=== PATIENT | male | born 2000 | race Caucasian/White ===

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

== ENCOUNTER 2023-03-01 13:29 | Inpatient (IN) | payer BC, OTHER ==
[2023-03-01] MEDS ORDERED: cefTRIAXone (ROCEPHIN) 1 GM VIAL ONE (13:50)
[2023-03-01] MEDS ORDERED: Vancomycin 1 GM/200 ML (FROZEN) BAG ONE (13:50)
[2023-03-01 13:58] LABS: #Monocytes 0.2 thou/uL (0.11-0.59); #Neutrophils 2.4 thou/uL (1.40-6.50); %Basophils 0.3 % (0.0-1.0); %Lymphocytes 24.5 % (28.0-48.0); %Monocytes 6.8 % (0.0-4.0); %Neutrophils 68.1 % (31.0-61.0); Hemoglobin 14.2 g/dL (14.0-18.0); Mean Corpuscular HGB CONC 34.2 g/dL (32.0-36.0); Mean Corpuscular Hemoglobin 30.1 pg (25.0-35.0); Mean Corpuscular Volume 88.1 fl (78.0-98.0); Mean Platelet Volume 10.2 fL (7.4-10.4); Platelet Count 133 10x3/uL (130-400); RBC Distribution Width 11.9 % (11.5-14.5); Red Blood Cell (RBC) Count 4.71 mill/uL (4.00-5.20); White Blood Cell (WBC) Count 3.6 10x3/uL (4.8-10.8)
[2023-03-01 14:20] LABS: Bilirubin Negative (Negative); Blood, Urine 3+ (Negative); CAUTI Indications for Culture Spinal Cord Injury; Clarity Turbid (Clear); Glucose, Urine (Dipstick) Normal (Negative); Ketone, Urine Greater than 150 mg/dL (Negative); Leukocyte 500 Leu/uL (Negative); Nitrite Negative (Negative); Protein, Urine (Dipstick) 50 mg/dL (Neg-Trace); Specific Gravity, Urine 1.019 (1.002-1.036); Squamous Epithelial 0-3 HPF (0-3); Urobilinogen Normal mg/dL (Less than 2)
[2023-03-01 14:22] LABS: INR-International Normal Ratio 1.1; Prothrombin Time 15.1 sec (12.0-14.7)
[2023-03-01 14:27] LABS: ALT (SGPT) 14 U/L (8-55); AST (SGOT) 17 U/L (5-34); Albumin 3.8 g/dL (3.5-5.0); Alkaline Phosphatase 101 U/L (50-130); Anion Gap 16 mmol/L (10-20); BUN (Urea Nitrogen) 9 mg/dL (8.9-20.6); Bacteria/HPF 1+ HPF (None Seen); Bilirubin, Total 0.6 mg/dL (0.2-1.2); Calc. Creatinine Clearance 0 mL/min (70-130); Carbon Dioxide 22 mmol/L (22-29); Chloride 99 mmol/L (98-107); Estimated GFR 130; Globulin 3.2 g/dL (2.4-3.5); Glucose 151 mg/dL (70-105); Potassium 3.2 mmol/L (3.5-5.1); Sodium 134 mmol/L (136-145)
[2023-03-01 14:28] LABS: Urine Culture Reflex Yes Yes
[2023-03-01] MEDS ORDERED: HYDROcodone/Acetaminophen 5/325 mg Tablet PO PRN (14:33)
[2023-03-01 14:39] LABS: PTT 39.8 sec (22.9-36.1)
[2023-03-01] MEDS ORDERED: diphenhydrAMINE 50 MG/ML VIAL ONE (15:05)
[2023-03-01] MEDS ORDERED: Sodium Chloride 0.9% 1,000 ML IV SCH (16:15)
[2023-03-01 17:28] VITALS: BMI 14.2
[2023-03-01] MEDS: Famotidine 20 MG TAB PO SCH (20:58)
[2023-03-01] MEDS: Baclofen 10 MG TAB PO SCH (20:58)
[2023-03-01] MEDS: Acetaminophen 325 MG TAB PO PRN (20:59)
[2023-03-02] MEDS: Acetaminophen 325 MG TAB PO PRN ×2 (06:02→13:56)
[2023-03-02 06:45] LABS: #Monocytes 0.4 thou/uL (0.11-0.59); #Neutrophils 1.6 thou/uL (1.40-6.50); %Basophils 0.3 % (0.0-1.0); %Eosinophils 0.6 % (0.0-10.0); %Lymphocytes 38.3 % (28.0-48.0); %Monocytes 12.6 % (0.0-4.0); %Neutrophils 47.9 % (31.0-61.0); Mean Corpuscular HGB CONC 33.4 g/dL (32.0-36.0); Mean Corpuscular Hemoglobin 30.6 pg (25.0-35.0); Mean Platelet Volume 10.3 fL (7.4-10.4); Platelet Count 133 10x3/uL (130-400); RBC Distribution Width 12.2 % (11.5-14.5); Red Blood Cell (RBC) Count 4.25 mill/uL (4.00-5.20); White Blood Cell (WBC) Count 3.3 10x3/uL (4.8-10.8)
[2023-03-02 06:48] LABS: Mean Corpuscular Volume 91.5 fl (78.0-98.0)
[2023-03-02 06:58] LABS: Anion Gap 12 mmol/L (10-20); BUN (Urea Nitrogen) 4 mg/dL (8.9-20.6); Calc. Creatinine Clearance 117 mL/min (70-130); Calcium 8.4 mg/dL (7.8-10.44); Carbon Dioxide 25 mmol/L (22-29); Chloride 108 mmol/L (98-107); Estimated GFR 136; Glucose 82 mg/dL (70-105); Potassium 3.5 mmol/L (3.5-5.1); Sodium 141 mmol/L (136-145)
[2023-03-02] MEDS ORDERED: cefTRIAXone\\ROCEPHIN 1 GM in Sodium Chloride 0.9% 100 ML IVPB SCH (08:00)
[2023-03-02] MEDS: Baclofen 10 MG TAB PO SCH ×2 (08:44→20:45)
[2023-03-02] MEDS: Sertraline 25 MG TAB PO SCH (08:44)
[2023-03-02] MEDS: Famotidine 20 MG TAB PO SCH ×2 (08:45→20:45)
[2023-03-02] MEDS: Cholecalciferol 1,000 UNITS (25 MCG) TAB PO SCH (08:45)
[2023-03-02] MEDS: Mesalamine DR 400 mg Capsule PO SCH (08:48)
[2023-03-02] MEDS: Cefepime 2 GM in Sodium Chloride 0.9% 100 ML IVPB SCH ×2 (13:56→20:48)
[2023-03-02] MEDS ORDERED: Saccharomyces boulardii 250 MG CAP PO SCH (21:30)
[2023-03-03] MEDS: Cefepime 2 GM in Sodium Chloride 0.9% 100 ML IVPB SCH ×2 (05:05→14:11)
[2023-03-03] MEDS: D MANNOSE 500 MG PO SCH ×3 (07:37→07:39)
[2023-03-03 07:56] LABS: #Eosinphils 0.1 thou/uL (0.0-0.7); #Monocytes 0.3 thou/uL (0.11-0.59); #Neutrophils 1.6 thou/uL (1.40-6.50); %Basophils 0.6 % (0.0-1.0); %Eosinophils 2.7 % (0.0-10.0); %Lymphocytes 37.4 % (28.0-48.0); %Monocytes 9.4 % (0.0-4.0); %Neutrophils 49.6 % (31.0-61.0); Hemoglobin 13.5 g/dL (14.0-18.0); Mean Corpuscular Hemoglobin 30.6 pg (25.0-35.0); Mean Platelet Volume 9.7 fL (7.4-10.4); Platelet Count 149 10x3/uL (130-400); RBC Distribution Width 12.1 % (11.5-14.5); Red Blood Cell (RBC) Count 4.41 mill/uL (4.00-5.20); White Blood Cell (WBC) Count 3.3 10x3/uL (4.8-10.8)
[2023-03-03] MEDS: Mesalamine DR 400 mg Capsule PO SCH (08:18)
[2023-03-03 08:19] LABS: Anion Gap 12 mmol/L (10-20); BUN (Urea Nitrogen) 5 mg/dL (8.9-20.6); Calc. Creatinine Clearance 124 mL/min (70-130); Calcium 8.7 mg/dL (7.8-10.44); Carbon Dioxide 27 mmol/L (22-29); Chloride 105 mmol/L (98-107); Estimated GFR 139; Glucose 83 mg/dL (70-105); Potassium 3.8 mmol/L (3.5-5.1); Sodium 140 mmol/L (136-145)
[2023-03-03] MEDS: Sertraline 25 MG TAB PO SCH (08:20)
[2023-03-03] MEDS: Sodium Chloride 0.9% 1,000 ML IV SCH ×2 (08:20→20:47)
[2023-03-03] MEDS: Cholecalciferol 1,000 UNITS (25 MCG) TAB PO SCH (08:20)
[2023-03-03] MEDS: Famotidine 20 MG TAB PO SCH ×2 (08:20→20:46)
[2023-03-03] MEDS: Baclofen 10 MG TAB PO SCH ×2 (08:20→20:46)
[2023-03-03] MEDS: Saccharomyces boulardii 250 MG CAP PO SCH (08:21)
[2023-03-03] MEDS: cefTRIAXone\\ROCEPHIN 2 GM in Sodium Chloride 0.9% 100 ML IVPB SCH (14:46)
[2023-03-03] MEDS ORDERED: cefTRIAXone\\ROCEPHIN 2 GM in Sodium Chloride 0.9% 100 ML IVPB SCH (15:00)
[2023-03-04] MEDS: Cholecalciferol 1,000 UNITS (25 MCG) TAB PO SCH (09:18)
[2023-03-04] MEDS: Baclofen 10 MG TAB PO SCH (09:18)
[2023-03-04] MEDS: Mesalamine DR 400 mg Capsule PO SCH (09:19)
[2023-03-04] MEDS: Saccharomyces boulardii 250 MG CAP PO SCH (09:19)
[2023-03-04] MEDS: Famotidine 20 MG TAB PO SCH (09:19)
[2023-03-04] MEDS: Sertraline 25 MG TAB PO SCH (09:20)
[2023-03-04] MEDS: cefTRIAXone\\ROCEPHIN 2 GM in Sodium Chloride 0.9% 100 ML IVPB SCH (15:27)
[2023-03-04] MEDS: Sodium Chloride 0.9% 1,000 ML IV SCH (16:01)
[2023-03-04 16:14] VITALS: BP 127/92; TEMP 98.3
== END 2023-03-04 17:53 | disposition home or self-care (01) | DRG 871 ==
LOC: ERS 13:29 → T4-A 16:48 → OBSVTOIN 03-02 14:57
PROVIDERS: ADMIT Internal Medicine; ATTEND Internal Medicine
PROC: 3E04329 Introduction of Other Anti-infective into Central Vein, Percutaneous Approach (ICD-10-PCS; 2023-03-01)
PROC: 5A09357 Assistance with Respiratory Ventilation, Less than 24 Consecutive Hours, Continuous Positive Airway Pressure (ICD-10-PCS; 2023-03-02)
PROC: 02HV33Z Insertion of Infusion Device into Superior Vena Cava, Percutaneous Approach (ICD-10-PCS; principal; 2023-03-04)
PROC: B548ZZA Ultrasonography of Superior Vena Cava, Guidance (ICD-10-PCS; 2023-03-04)
DX: A41.4 Sepsis due to anaerobes (principal); G82.50 Quadriplegia, unspecified; N39.0 Urinary tract infection, site not specified; E87.1 Hypo-osmolality and hyponatremia; K51.90 Ulcerative colitis, unspecified, without complications; N20.2 Calculus of kidney with calculus of ureter; S11.93XD Puncture wound without foreign body of unspecified part of neck, subsequent encounter; R32 Unspecified urinary incontinence; E87.6 Hypokalemia; Z98.890 Other specified postprocedural states; Z93.0 Tracheostomy status; Z88.2 Allergy status to sulfonamides; Z79.899 Other long term (current) drug therapy
CPT/HCPCS: 36415; 36569; 71045; 74176; 76770; 80048; 80053; 81001; 83605; 85025; 85610; 85730; 87040; 87086; 96361; 96365; 96372; 96375; 96376; C1751; G0378; J0692; J0696; J1200; J1650; J3370-JW; J3490; J7050

== ENCOUNTER → 2023-03-10 | Day surgery (SDC) | payer BC, MEDICAID ==
[2023-03-10 11:44] LABS: #Eosinphils 0.1 thou/uL (0.0-0.7); #Monocytes 0.3 thou/uL (0.11-0.59); #Neutrophils 1.3 thou/uL (1.40-6.50); %Basophils 0.8 % (0.0-1.0); %Eosinophils 2.3 % (0.0-10.0); %Lymphocytes 49.2 % (28.0-48.0); %Monocytes 9.6 % (0.0-4.0); %Neutrophils 37.3 % (31.0-61.0); Hematocrit 41.4 % (42.0-52.0); Hemoglobin 13.6 g/dL (14.0-18.0); Mean Corpuscular HGB CONC 32.9 g/dL (32.0-36.0); Mean Corpuscular Hemoglobin 29.8 pg (25.0-35.0); Mean Corpuscular Volume 90.6 fl (78.0-98.0); Mean Platelet Volume 9.6 fL (7.4-10.4); Platelet Count 269 10x3/uL (130-400); RBC Distribution Width 12.1 % (11.5-14.5); Red Blood Cell (RBC) Count 4.57 mill/uL (4.00-5.20); White Blood Cell (WBC) Count 3.5 10x3/uL (4.8-10.8)
[2023-03-10 12:13] LABS: ALT (SGPT) 28 U/L (8-55); AST (SGOT) 22 U/L (5-34); Alkaline Phosphatase 111 U/L (50-130); Anion Gap 7 mmol/L (10-20); BUN (Urea Nitrogen) 9 mg/dL (8.9-20.6); Bilirubin, Total 0.3 mg/dL (0.2-1.2); CRP (Inflammatory) 0.64 mg/dL (= or < 0.5); Calc. Creatinine Clearance 0 mL/min (70-130); Calcium 9.4 mg/dL (7.8-10.44); Carbon Dioxide 29 mmol/L (22-29); Chloride 103 mmol/L (98-107); Estimated GFR 144; Globulin 3.4 g/dL (2.4-3.5); Glucose 73 mg/dL (70-105); Protein, Total 7.4 g/dL (6.0-8.3); Sodium 135 mmol/L (136-145)
== END ==
LOC: ONC/OP 10:38
PROVIDERS: ATTEND Student in an Organized Health Care Education/Training Program
DX: R78.81 Bacteremia (principal); Z88.2 Allergy status to sulfonamides; Z88.1 Allergy status to other antibiotic agents
CPT/HCPCS: 36592; 80053; 85025; 86140; 99211; G0463

== ENCOUNTER 2023-03-16 12:59 | Day surgery (SDC) | payer BC, MEDICAID | END 2023-03-16 13:23 | disposition home or self-care (01) | LOC: ONC/OP 12:59 | PROVIDERS: ATTEND Student in an Organized Health Care Education/Training Program | DX: R78.81 Bacteremia (principal); Z88.2 Allergy status to sulfonamides; Z88.1 Allergy status to other antibiotic agents | CPT/HCPCS: 99211; G0463 ==

== ENCOUNTER 2023-04-09 07:28 | Inpatient (IN) | payer BC, OTHER ==
[2023-04-09] MEDS ORDERED: Acetaminophen 325 MG TAB PO PRN (08:18)
[2023-04-09] MEDS ORDERED: Ondansetron ODT 4 MG TAB PO PRN ×2 (08:18→17:15)
[2023-04-09] MEDS ORDERED: Ondansetron PF 4 MG/2 ML Vial IVP PRN (08:18)
[2023-04-09 10:16] VITALS: BMI 17.2
[2023-04-09] MEDS ORDERED: Meropenem 1 GM in Sodium Chloride 0.9% 100 ML IVPB SCH ×2 (12:00→20:00)
[2023-04-09] MEDS ORDERED: Melatonin 3 MG TAB PO PRN (17:16)
[2023-04-09] MEDS ORDERED: DOCUSATE SODIUM 283 MG/5 ML PR PRN (17:58)
[2023-04-09] MEDS: Baclofen 10 MG TAB PO SCH (20:13)
[2023-04-09] MEDS ORDERED: Baclofen 10 MG TAB PO SCH (21:00)
[2023-04-09] MEDS ORDERED: AZO D MANNOSE PO SCH (21:00)
[2023-04-09] MEDS: cefTRIAXone\\ROCEPHIN 2 GM in Sodium Chloride 0.9% 100 ML IVPB SCH (21:28)
[2023-04-10 06:58] LABS: #Eosinphils 0.1 thou/uL (0.0-0.7); #Monocytes 0.5 thou/uL (0.11-0.59); #Neutrophils 2.2 thou/uL (1.40-6.50); %Basophils 0.5 % (0.0-1.0); %Eosinophils 1.7 % (0.0-10.0); %Lymphocytes 32.9 % (28.0-48.0); %Monocytes 11.8 % (0.0-4.0); %Neutrophils 53.1 % (31.0-61.0); Hematocrit 38.2 % (42.0-52.0); Hemoglobin 12.9 g/dL (14.0-18.0); Mean Corpuscular HGB CONC 33.8 g/dL (32.0-36.0); Mean Corpuscular Hemoglobin 29.7 pg (25.0-35.0); Mean Platelet Volume 9.9 fL (7.4-10.4); Platelet Count 206 10x3/uL (130-400); RBC Distribution Width 12.2 % (11.5-14.5); Red Blood Cell (RBC) Count 4.34 mill/uL (4.00-5.20); White Blood Cell (WBC) Count 4.1 10x3/uL (4.8-10.8)
[2023-04-10 07:24] LABS: Anion Gap 11 mmol/L (10-20); BUN (Urea Nitrogen) 5 mg/dL (8.9-20.6); Calc. Creatinine Clearance 144 mL/min (70-130); Calcium 8.9 mg/dL (7.8-10.44); Carbon Dioxide 24 mmol/L (22-29); Chloride 103 mmol/L (98-107); Estimated GFR 145; Glucose 88 mg/dL (70-105); Potassium 3.3 mmol/L (3.5-5.1); Sodium 135 mmol/L (136-145)
[2023-04-10] MEDS: Sertraline 25 MG TAB PO SCH (08:43)
[2023-04-10] MEDS: Saccharomyces boulardii 250 MG CAP PO SCH (08:43)
[2023-04-10] MEDS: Cholecalciferol 1,000 UNITS (25 MCG) TAB PO SCH (08:43)
[2023-04-10] MEDS: Baclofen 10 MG TAB PO SCH ×2 (08:43→21:28)
[2023-04-10] MEDS ORDERED: Mesalamine [Lialda] 1.2 GM Tablet.Dr PO SCH (09:00)
[2023-04-10] MEDS ORDERED: Melatonin 3 MG TAB PO PRN (11:19)
[2023-04-10] MEDS ORDERED: diphenhydrAMINE 12.5 MG/5 ML UDCUP PO PRN (21:26)
[2023-04-10] MEDS: cefTRIAXone\\ROCEPHIN 2 GM in Sodium Chloride 0.9% 100 ML IVPB SCH (21:28)
[2023-04-11 07:54] LABS: #Eosinphils 0.1 thou/uL (0.0-0.7); #Monocytes 0.5 thou/uL (0.11-0.59); %Basophils 0.6 % (0.0-1.0); %Eosinophils 1.4 % (0.0-10.0); %Lymphocytes 29.5 % (28.0-48.0); %Monocytes 9.8 % (0.0-4.0); %Neutrophils 58.5 % (31.0-61.0); Hematocrit 39.7 % (42.0-52.0); Hemoglobin 13.3 g/dL (14.0-18.0); Mean Corpuscular HGB CONC 33.5 g/dL (32.0-36.0); Mean Corpuscular Hemoglobin 29.6 pg (25.0-35.0); Mean Corpuscular Volume 88.2 fl (78.0-98.0); Mean Platelet Volume 10.1 fL (7.4-10.4); Platelet Count 226 10x3/uL (130-400); RBC Distribution Width 12.2 % (11.5-14.5); White Blood Cell (WBC) Count 5.1 10x3/uL (4.8-10.8)
[2023-04-11 08:10] LABS: Anion Gap 13 mmol/L (10-20); BUN (Urea Nitrogen) 7 mg/dL (8.9-20.6); Calc. Creatinine Clearance 152 mL/min (70-130); Calcium 9.1 mg/dL (7.8-10.44); Carbon Dioxide 25 mmol/L (22-29); Chloride 104 mmol/L (98-107); Estimated GFR 147; Glucose 92 mg/dL (70-105); Potassium 3.5 mmol/L (3.5-5.1); Sodium 138 mmol/L (136-145)
[2023-04-11] MEDS ORDERED: Meropenem 1 GM in Sodium Chloride 0.9% 100 ML IVPB SCH (08:30)
[2023-04-11] MEDS: Sertraline 25 MG TAB PO SCH (08:58)
[2023-04-11] MEDS: Saccharomyces boulardii 250 MG CAP PO SCH (08:58)
[2023-04-11] MEDS: Baclofen 10 MG TAB PO SCH ×2 (08:58→21:52)
[2023-04-11] MEDS: Cholecalciferol 1,000 UNITS (25 MCG) TAB PO SCH (08:58)
[2023-04-11] MEDS: Meropenem 1 GM in Sodium Chloride 0.9% 100 ML IVPB SCH (16:32)
[2023-04-11] MEDS ORDERED: diphenhydrAMINE 12.5 MG/5 ML UDCUP PO PRN ×2 (21:16→22:16)
[2023-04-12] MEDS: Meropenem 1 GM in Sodium Chloride 0.9% 100 ML IVPB SCH ×3 (01:16→17:08)
[2023-04-12 07:09] LABS: #Eosinphils 0.1 thou/uL (0.0-0.7); #Monocytes 0.4 thou/uL (0.11-0.59); #Neutrophils 1.3 thou/uL (1.40-6.50); %Basophils 0.9 % (0.0-1.0); %Eosinophils 3.3 % (0.0-10.0); %Lymphocytes 45.3 % (28.0-48.0); %Monocytes 10.5 % (0.0-4.0); %Neutrophils 39.7 % (31.0-61.0); Hemoglobin 12.9 g/dL (14.0-18.0); Mean Corpuscular HGB CONC 33.1 g/dL (32.0-36.0); Mean Corpuscular Hemoglobin 29.8 pg (25.0-35.0); Mean Corpuscular Volume 90.1 fl (78.0-98.0); Mean Platelet Volume 9.6 fL (7.4-10.4); Platelet Count 226 10x3/uL (130-400); RBC Distribution Width 12.2 % (11.5-14.5); Red Blood Cell (RBC) Count 4.33 mill/uL (4.00-5.20); White Blood Cell (WBC) Count 3.3 10x3/uL (4.8-10.8)
[2023-04-12 07:35] LABS: Anion Gap 11 mmol/L (10-20); BUN (Urea Nitrogen) 9 mg/dL (8.9-20.6); Calc. Creatinine Clearance 139 mL/min (70-130); Calcium 8.9 mg/dL (7.8-10.44); Carbon Dioxide 24 mmol/L (22-29); Chloride 106 mmol/L (98-107); Estimated GFR 143; Glucose 92 mg/dL (70-105); Potassium 3.3 mmol/L (3.5-5.1); Sodium 138 mmol/L (136-145)
[2023-04-12] MEDS: Saccharomyces boulardii 250 MG CAP PO SCH (09:50)
[2023-04-12] MEDS: Sertraline 25 MG TAB PO SCH (09:50)
[2023-04-12] MEDS: Cholecalciferol 1,000 UNITS (25 MCG) TAB PO SCH (09:50)
[2023-04-12] MEDS: Baclofen 10 MG TAB PO SCH ×2 (09:50→21:14)
[2023-04-13] MEDS: Meropenem 1 GM in Sodium Chloride 0.9% 100 ML IVPB SCH ×3 (01:54→16:34)
[2023-04-13 06:34] LABS: #Eosinphils 0.1 thou/uL (0.0-0.7); #Monocytes 0.4 thou/uL (0.11-0.59); %Basophils 0.6 % (0.0-1.0); %Eosinophils 3.4 % (0.0-10.0); %Lymphocytes 51.7 % (28.0-48.0); %Monocytes 12.6 % (0.0-4.0); %Neutrophils 31.4 % (31.0-61.0); Hematocrit 37.6 % (42.0-52.0); Hemoglobin 12.6 g/dL (14.0-18.0); Mean Corpuscular HGB CONC 33.5 g/dL (32.0-36.0); Mean Corpuscular Hemoglobin 30.3 pg (25.0-35.0); Mean Corpuscular Volume 90.4 fl (78.0-98.0); Mean Platelet Volume 9.5 fL (7.4-10.4); Platelet Count 227 10x3/uL (130-400); RBC Distribution Width 12.2 % (11.5-14.5); Red Blood Cell (RBC) Count 4.16 mill/uL (4.00-5.20); White Blood Cell (WBC) Count 3.3 10x3/uL (4.8-10.8)
[2023-04-13 07:03] LABS: Anion Gap 12 mmol/L (10-20); BUN (Urea Nitrogen) 10 mg/dL (8.9-20.6); Calc. Creatinine Clearance 152 mL/min (70-130); Calcium 8.9 mg/dL (7.8-10.44); Carbon Dioxide 24 mmol/L (22-29); Chloride 105 mmol/L (98-107); Estimated GFR 147; Glucose 86 mg/dL (70-105); Potassium 3.7 mmol/L (3.5-5.1); Sodium 137 mmol/L (136-145)
[2023-04-13] MEDS: Saccharomyces boulardii 250 MG CAP PO SCH (08:38)
[2023-04-13] MEDS: Baclofen 10 MG TAB PO SCH ×2 (08:38→20:33)
[2023-04-13] MEDS: Cholecalciferol 1,000 UNITS (25 MCG) TAB PO SCH (08:38)
[2023-04-13] MEDS: Sertraline 25 MG TAB PO SCH (08:38)
[2023-04-13] MEDS ORDERED: Loperamide HCl 2 MG CAP PO PRN (16:20)
[2023-04-13] MEDS ORDERED: ALPRAZolam 0.5 MG TAB PO SCH (16:30)
[2023-04-14] MEDS: Meropenem 1 GM in Sodium Chloride 0.9% 100 ML IVPB SCH ×3 (00:05→17:51)
[2023-04-14 07:00] LABS: Hematocrit 38.2 % (42.0-52.0); Hemoglobin 12.5 g/dL (14.0-18.0); Manual Diff?? YES; Mean Corpuscular HGB CONC 32.7 g/dL (32.0-36.0); Mean Corpuscular Hemoglobin 29.6 pg (25.0-35.0); Mean Corpuscular Volume 90.5 fl (78.0-98.0); Mean Platelet Volume 9.4 fL (7.4-10.4); Platelet Count 239 10x3/uL (130-400); RBC Distribution Width 12.3 % (11.5-14.5); Red Blood Cell (RBC) Count 4.22 mill/uL (4.00-5.20); White Blood Cell (WBC) Count 3.7 10x3/uL (4.8-10.8)
[2023-04-14 07:20] LABS: Delete Auto Diff?? YES
[2023-04-14 07:27] LABS: Anion Gap 11 mmol/L (10-20); BUN (Urea Nitrogen) 9 mg/dL (8.9-20.6); Calc. Creatinine Clearance 142 mL/min (70-130); Carbon Dioxide 26 mmol/L (22-29); Chloride 106 mmol/L (98-107); Estimated GFR 144; Glucose 86 mg/dL (70-105); Potassium 3.6 mmol/L (3.5-5.1); Sodium 139 mmol/L (136-145)
[2023-04-14 07:40] LABS: Band 2 % (5-11); CellaVision Operator ID LAB.GE; Eosinophils 8 % (0-10); Lymphocytes 53 % (28-48); Monocytes 5 % (0-4); Myelocyte 2 % (0-0); Neutrophil 26 % (31-61); Platelet Adequacy Comment Platelets Normal; Polychromasia SLIGHT = 2-3 cells HPF (0-2); Reactive Lymphocytes 3 % (0-10); Total Cell Count 100
[2023-04-14] MEDS: Sertraline 25 MG TAB PO SCH (09:24)
[2023-04-14] MEDS: Saccharomyces boulardii 250 MG CAP PO SCH (09:24)
[2023-04-14] MEDS: Baclofen 10 MG TAB PO SCH ×2 (09:24→20:34)
[2023-04-14] MEDS: Cholecalciferol 1,000 UNITS (25 MCG) TAB PO SCH (09:24)
[2023-04-14] MEDS ORDERED: Lorazepam 0.5 MG TAB PO SCH (09:24)
[2023-04-14] MEDS ORDERED: Lorazepam 0.5 MG TAB PO PRN (09:25)
[2023-04-15] MEDS ORDERED: ERTAPENEM 1 GM IV SCH (06:00)
[2023-04-15] MEDS ORDERED: Ertapenem 1 GM in Sodium Chloride 0.9% 100 ML IVPB SCH (06:00)
[2023-04-15 07:40] VITALS: BP 130/92; TEMP 98
[2023-04-15] MEDS: Baclofen 10 MG TAB PO SCH (09:34)
[2023-04-15] MEDS: Cholecalciferol 1,000 UNITS (25 MCG) TAB PO SCH (09:34)
[2023-04-15] MEDS: Sertraline 25 MG TAB PO SCH (09:35)
[2023-04-15] MEDS: Saccharomyces boulardii 250 MG CAP PO SCH (09:35)
== END 2023-04-15 12:50 | disposition home health service (06) | DRG 690 ==
LOC: T4-B 07:28
PROVIDERS: ADMIT Student in an Organized Health Care Education/Training Program; ATTEND Family Medicine
PROC: 02HV33Z Insertion of Infusion Device into Superior Vena Cava, Percutaneous Approach (ICD-10-PCS; principal; 2023-04-14)
PROC: B548ZZA Ultrasonography of Superior Vena Cava, Guidance (ICD-10-PCS; 2023-04-14)
PROC: B5181ZA Fluoroscopy of Superior Vena Cava using Low Osmolar Contrast, Guidance (ICD-10-PCS; 2023-04-14)
DX: N12 Tubulo-interstitial nephritis, not specified as acute or chronic (principal); G82.20 Paraplegia, unspecified; N31.9 Neuromuscular dysfunction of bladder, unspecified; N20.0 Calculus of kidney; B96.1 Klebsiella pneumoniae [K. pneumoniae] as the cause of diseases classified elsewhere; Z88.2 Allergy status to sulfonamides; Z88.1 Allergy status to other antibiotic agents; Z79.899 Other long term (current) drug therapy; Z93.1 Gastrostomy status
CPT/HCPCS: 36415; 36569; 80048; 85025; J0696; J1335; J2185; J3490; Q0163

== ENCOUNTER 2023-07-22 00:49 | Inpatient (IN) | payer BC, OTHER ==
[2023-07-22 01:58] LABS: #Monocytes 0.6 thou/uL (0.11-0.59); %Basophils 0.3 % (0.0-1.0); %Eosinophils 0.4 % (0.0-10.0); %Lymphocytes 15.4 % (21.0-51.0); %Monocytes 9.3 % (0.0-10.0); %Neutrophils 74.2 % (42.0-75.0); Hematocrit 38.7 % (42.0-52.0); Mean Corpuscular HGB CONC 33.6 g/dL (32.0-36.0); Mean Corpuscular Hemoglobin 29.5 pg (27.0-31.0); Mean Corpuscular Volume 87.8 fl (78.0-98.0); Mean Platelet Volume 9.7 fL (7.4-10.4); Platelet Count 204 10x3/uL (130-400); RBC Distribution Width 12.4 % (11.5-14.5); Red Blood Cell (RBC) Count 4.41 mill/uL (4.70-6.10); White Blood Cell (WBC) Count 6.8 10x3/uL (4.8-10.8)
[2023-07-22 02:20] LABS: CRP (Inflammatory) 12.09 mg/dL (= or < 0.5); Lipase 5 U/L (8-78); Magnesium 1.8 mg/dL (1.6-2.6)
[2023-07-22 02:21] LABS: ALT (SGPT) 12 U/L (8-55); AST (SGOT) 13 U/L (5-34); Albumin 3.9 g/dL (3.5-5.0); Alkaline Phosphatase 109 U/L (40-110); Anion Gap 14 mmol/L (10-20); BUN (Urea Nitrogen) 11 mg/dL (8.9-20.6); Bilirubin, Total 1.1 mg/dL (0.2-1.2); Calc. Creatinine Clearance 0 mL/min (70-130); Calcium 9.3 mg/dL (7.8-10.44); Carbon Dioxide 21 mmol/L (22-29); Chloride 102 mmol/L (98-107); Estimated GFR 138; Glucose 95 mg/dL (70-105); Potassium 3.7 mmol/L (3.5-5.1); Protein, Total 7.9 g/dL (6.0-8.3); Sodium 133 mmol/L (136-145)
[2023-07-22 02:52] LABS: Bacteria/HPF 3+ HPF (None Seen); Bilirubin Negative (Negative); Blood, Urine 3+ (Negative); CAUTI Indications for Culture Pelvic or flank pain; Clarity Extra Turbid (Clear); Glucose, Urine (Dipstick) Normal (Negative); Ketone, Urine 10 mg/dL (Negative); Leukocyte 500 Leu/uL (Negative); Nitrite 2+ (Negative); Protein, Urine (Dipstick) 200 mg/dL (Neg-Trace); RBC/HPF Greater than 50 HPF (0-3); Specific Gravity, Urine 1.029 (1.002-1.036); Squamous Epithelial None Seen HPF (0-3); Urobilinogen Normal mg/dL (Less than 2); WBC/HPF Greater than 50 HPF (0-3)
[2023-07-22 02:57] LABS: Urine Culture Reflex Yes Yes
[2023-07-22] MEDS ORDERED: Acetaminophen 500 MG TAB ONE (03:08)
[2023-07-22] MEDS ORDERED: Sodium Chloride 0.9% 100 ML ONE ×2 (03:35→08:00)
[2023-07-22] MEDS ORDERED: Piperacillin/Tazobactam 3.375 GM VIAL ONE ×2 (03:35→08:00)
[2023-07-22] MEDS ORDERED: Ketorolac Tromethamine 30 MG/ML VIAL ONE (04:00)
[2023-07-22] MEDS ORDERED: Senokot S 8.6-50 MG TAB PO PRN (04:55)
[2023-07-22 05:29] VITALS: BMI 14.8
[2023-07-22] MEDS ORDERED: Ondansetron PF 4 MG/2 ML Vial IVP PRN (07:42)
[2023-07-22] MEDS ORDERED: Ondansetron ODT 4 MG TAB PO PRN (07:42)
[2023-07-22] MEDS: Lactated Ringer's 1,000 ML IV SCH ×3 (07:47→21:30)
[2023-07-22] MEDS ORDERED: Piperacillin/Tazobactam 3.375 GM in Sodium Chloride 0.9% 100 ML IVPB SCH ×2 (08:00→09:00)
[2023-07-22] MEDS ORDERED: Iopamidol-370 76% 500 ML MDV (1 ML CHARGE) ONE (09:26)
[2023-07-22] MEDS ORDERED: Polyethylene Glycol 3350 17 GM Packet PO PRN (10:06)
[2023-07-22] MEDS ORDERED: Bisacodyl 10 MG SUPP PR PRN (10:06)
[2023-07-22] MEDS ORDERED: Bisacodyl 5 MG TAB PO PRN (10:06)
[2023-07-22] MEDS: Acetaminophen 500 MG TAB PO PRN ×2 (11:12→19:28)
[2023-07-22] MEDS: Baclofen 10 MG TAB PO PRN (11:18)
[2023-07-22] MEDS: Sertraline 25 MG TAB PO SCH (11:18)
[2023-07-22] MEDS ORDERED: Meropenem 1 GM in Sodium Chloride 0.9% 100 ML IVPB SCH (14:00)
[2023-07-22] MEDS ORDERED: hydrOXYzine 25 MG TAB PO SCH (19:45)
[2023-07-22] MEDS: Meropenem 1 GM in Sodium Chloride 0.9% 100 ML IVPB SCH (22:30)
[2023-07-23] MEDS: Acetaminophen 500 MG TAB PO PRN (02:51)
[2023-07-23] MEDS: Baclofen 10 MG TAB PO PRN ×2 (03:08→21:59)
[2023-07-23 04:52] LABS: #Monocytes 0.6 thou/uL (0.11-0.59); #Neutrophils 4.8 thou/uL (1.40-6.50); %Basophils 0.3 % (0.0-1.0); %Eosinophils 0.2 % (0.0-10.0); %Lymphocytes 10.7 % (21.0-51.0); %Monocytes 9.5 % (0.0-10.0); Hematocrit 34.5 % (42.0-52.0); Hemoglobin 11.5 g/dL (14.0-18.0); Mean Corpuscular HGB CONC 33.3 g/dL (32.0-36.0); Mean Corpuscular Hemoglobin 29.4 pg (27.0-31.0); Mean Corpuscular Volume 88.2 fl (78.0-98.0); Mean Platelet Volume 9.6 fL (7.4-10.4); Platelet Count 174 10x3/uL (130-400); RBC Distribution Width 12.3 % (11.5-14.5); Red Blood Cell (RBC) Count 3.91 mill/uL (4.70-6.10); White Blood Cell (WBC) Count 6.1 10x3/uL (4.8-10.8)
[2023-07-23 05:23] LABS: ALT (SGPT) 10 U/L (8-55); AST (SGOT) 16 U/L (5-34); Alkaline Phosphatase 77 U/L (40-110); Anion Gap 13 mmol/L (10-20); BUN (Urea Nitrogen) 8 mg/dL (8.9-20.6); Bilirubin, Total 0.6 mg/dL (0.2-1.2); Calc. Creatinine Clearance 156 mL/min (70-130); Calcium 8.3 mg/dL (7.8-10.44); Carbon Dioxide 20 mmol/L (22-29); Chloride 103 mmol/L (98-107); Estimated GFR 146; Globulin 3.2 g/dL (2.4-3.5); Glucose 114 mg/dL (70-105); Potassium 3.5 mmol/L (3.5-5.1); Protein, Total 6.2 g/dL (6.0-8.3); Sodium 132 mmol/L (136-145)
[2023-07-23] MEDS: Meropenem 1 GM in Sodium Chloride 0.9% 100 ML IVPB SCH ×3 (05:40→21:58)
[2023-07-23] MEDS ORDERED: Lactated Ringer's 1,000 ML IV SCH (07:00)
[2023-07-23] MEDS: Mesalamine DR 400 mg Capsule PO SCH (09:02)
[2023-07-23] MEDS: Sertraline 25 MG TAB PO SCH (09:02)
[2023-07-23] MEDS: Saccharomyces boulardii 250 MG CAP PO SCH (09:02)
[2023-07-23] MEDS: Ibuprofen 600 MG TAB PO PRN ×2 (12:47→21:59)
[2023-07-23] MEDS: Lactated Ringer's 1,000 ML IV SCH ×2 (14:27→23:43)
[2023-07-23] MEDS: hydrOXYzine 25 MG TAB PO PRN (21:58)
[2023-07-24 05:08] LABS: #Eosinphils 0.1 thou/uL (0.0-0.7); #Monocytes 0.6 thou/uL (0.11-0.59); %Basophils 0.5 % (0.0-1.0); %Eosinophils 1.4 % (0.0-10.0); %Lymphocytes 37.1 % (21.0-51.0); %Monocytes 14.5 % (0.0-10.0); Hematocrit 32.8 % (42.0-52.0); Hemoglobin 10.6 g/dL (14.0-18.0); Mean Corpuscular HGB CONC 32.3 g/dL (32.0-36.0); Mean Corpuscular Hemoglobin 29.9 pg (27.0-31.0); Mean Corpuscular Volume 92.7 fl (78.0-98.0); Mean Platelet Volume 9.7 fL (7.4-10.4); Platelet Count 170 10x3/uL (130-400); RBC Distribution Width 12.3 % (11.5-14.5); Red Blood Cell (RBC) Count 3.54 mill/uL (4.70-6.10); White Blood Cell (WBC) Count 4.3 10x3/uL (4.8-10.8)
[2023-07-24 05:41] LABS: ALT (SGPT) 11 U/L (8-55); AST (SGOT) 16 U/L (5-34); Albumin 3.1 g/dL (3.5-5.0); Alkaline Phosphatase 73 U/L (40-110); Anion Gap 11 mmol/L (10-20); BUN (Urea Nitrogen) 5 mg/dL (8.9-20.6); Bilirubin, Total 0.4 mg/dL (0.2-1.2); Calc. Creatinine Clearance 156 mL/min (70-130); Calcium 8.4 mg/dL (7.8-10.44); Carbon Dioxide 23 mmol/L (22-29); Chloride 106 mmol/L (98-107); Estimated GFR 146; Glucose 98 mg/dL (70-105); Potassium 3.2 mmol/L (3.5-5.1); Protein, Total 6.1 g/dL (6.0-8.3); Sodium 137 mmol/L (136-145)
[2023-07-24] MEDS: Meropenem 1 GM in Sodium Chloride 0.9% 100 ML IVPB SCH ×3 (06:08→21:34)
[2023-07-24] MEDS ORDERED: Potassium Chloride 20 MEQ in Premix 1 BAG IVPB SCH (08:00)
[2023-07-24] MEDS ORDERED: Potassium Chloride 20 MEQ TAB PO SCH (09:15)
[2023-07-24] MEDS: Lactated Ringer's 1,000 ML IV SCH ×3 (09:45→23:48)
[2023-07-24] MEDS: Saccharomyces boulardii 250 MG CAP PO SCH (09:48)
[2023-07-24] MEDS: Mesalamine DR 400 mg Capsule PO SCH (09:49)
[2023-07-24] MEDS: Sertraline 25 MG TAB PO SCH (09:51)
[2023-07-24] MEDS: Acetaminophen 500 MG TAB PO PRN (12:50)
[2023-07-24] MEDS ORDERED: Heparin 1,000 UNITS/ML VIAL ONE (13:08)
[2023-07-24] MEDS ORDERED: Sodium Bicarbonate 2.5 MEQ/5 ML VIAL ONE (13:09)
[2023-07-24] MEDS ORDERED: Lidocaine 1% PF 5 ML VIAL ONE (13:12)
[2023-07-24] MEDS: hydrOXYzine 25 MG TAB PO PRN (21:35)
[2023-07-24] MEDS: Baclofen 10 MG TAB PO PRN (21:35)
[2023-07-24] MEDS: Ibuprofen 600 MG TAB PO PRN (21:35)
[2023-07-25] MEDS: Meropenem 1 GM in Sodium Chloride 0.9% 100 ML IVPB SCH ×3 (06:35→21:13)
[2023-07-25 08:18] LABS: #Eosinphils 0.1 thou/uL (0.0-0.7); #Monocytes 0.3 thou/uL (0.11-0.59); #Neutrophils 1.3 thou/uL (1.40-6.50); %Basophils 0.7 % (0.0-1.0); %Eosinophils 4.1 % (0.0-10.0); %Lymphocytes 42.7 % (21.0-51.0); %Monocytes 9.2 % (0.0-10.0); Hematocrit 33.5 % (42.0-52.0); Mean Corpuscular HGB CONC 32.8 g/dL (32.0-36.0); Mean Corpuscular Hemoglobin 29.3 pg (27.0-31.0); Mean Corpuscular Volume 89.1 fl (78.0-98.0); Mean Platelet Volume 9.7 fL (7.4-10.4); Platelet Count 162 10x3/uL (130-400); RBC Distribution Width 12.3 % (11.5-14.5); Red Blood Cell (RBC) Count 3.76 mill/uL (4.70-6.10); White Blood Cell (WBC) Count 2.9 10x3/uL (4.8-10.8)
[2023-07-25 08:47] LABS: ALT (SGPT) 12 U/L (8-55); AST (SGOT) 12 U/L (5-34); Albumin 3.1 g/dL (3.5-5.0); Alkaline Phosphatase 70 U/L (40-110); Anion Gap 10 mmol/L (10-20); BUN (Urea Nitrogen) 5 mg/dL (8.9-20.6); Bilirubin, Total 0.5 mg/dL (0.2-1.2); Calc. Creatinine Clearance 162 mL/min (70-130); Calcium 8.6 mg/dL (7.8-10.44); Carbon Dioxide 27 mmol/L (22-29); Chloride 105 mmol/L (98-107); Estimated GFR 148; Globulin 3.2 g/dL (2.4-3.5); Glucose 78 mg/dL (70-105); Potassium 3.3 mmol/L (3.5-5.1); Protein, Total 6.3 g/dL (6.0-8.3); Sodium 139 mmol/L (136-145)
[2023-07-25] MEDS: Saccharomyces boulardii 250 MG CAP PO SCH (09:24)
[2023-07-25] MEDS: Mesalamine DR 400 mg Capsule PO SCH (09:24)
[2023-07-25] MEDS: Sertraline 25 MG TAB PO SCH (09:24)
[2023-07-25] MEDS: Lactated Ringer's 1,000 ML IV SCH (15:20)
[2023-07-25] MEDS ORDERED: Sodium Chloride 0.9% 100 ML ONE (15:23)
[2023-07-25] MEDS: Baclofen 10 MG TAB PO PRN (21:14)
[2023-07-25] MEDS: hydrOXYzine 25 MG TAB PO PRN (21:14)
[2023-07-25] MEDS: Ibuprofen 600 MG TAB PO PRN (21:14)
[2023-07-26] MEDS: Meropenem 1 GM in Sodium Chloride 0.9% 100 ML IVPB SCH ×3 (05:47→21:42)
[2023-07-26] MEDS: Lactated Ringer's 1,000 ML IV SCH (05:47)
[2023-07-26 06:52] LABS: #Eosinphils 0.1 thou/uL (0.0-0.7); #Monocytes 0.3 thou/uL (0.11-0.59); #Neutrophils 0.9 thou/uL (1.40-6.50); %Basophils 0.7 % (0.0-1.0); %Lymphocytes 50.5 % (21.0-51.0); %Monocytes 11.1 % (0.0-10.0); %Neutrophils 31.6 % (42.0-75.0); Hematocrit 32.4 % (42.0-52.0); Hemoglobin 10.7 g/dL (14.0-18.0); Mean Corpuscular Hemoglobin 29.2 pg (27.0-31.0); Mean Corpuscular Volume 88.3 fl (78.0-98.0); Mean Platelet Volume 9.9 fL (7.4-10.4); Platelet Count 212 10x3/uL (130-400); RBC Distribution Width 12.4 % (11.5-14.5); Red Blood Cell (RBC) Count 3.67 mill/uL (4.70-6.10); White Blood Cell (WBC) Count 2.8 10x3/uL (4.8-10.8)
[2023-07-26 07:17] LABS: ALT (SGPT) 12 U/L (8-55); AST (SGOT) 11 U/L (5-34); Albumin 2.7 g/dL (3.5-5.0); Alkaline Phosphatase 63 U/L (40-110); Anion Gap 13 mmol/L (10-20); BUN (Urea Nitrogen) 6 mg/dL (8.9-20.6); Bilirubin, Total 0.3 mg/dL (0.2-1.2); Calc. Creatinine Clearance 201 mL/min (70-130); Calcium 8.2 mg/dL (7.8-10.44); Carbon Dioxide 23 mmol/L (22-29); Chloride 105 mmol/L (98-107); Estimated GFR 158; Globulin 2.7 g/dL (2.4-3.5); Glucose 72 mg/dL (70-105); Potassium 3.3 mmol/L (3.5-5.1); Protein, Total 5.4 g/dL (6.0-8.3); Sodium 138 mmol/L (136-145)
[2023-07-26 08:40] LABS: Magnesium 1.5 mg/dL (1.6-2.6)
[2023-07-26] MEDS ORDERED: Bisacodyl 5 MG TAB PO SCH (09:00)
[2023-07-26] MEDS ORDERED: Polyethylene Glycol 3350 17 GM Packet PO SCH (09:00)
[2023-07-26] MEDS ORDERED: Potassium Chloride 20 MEQ TAB PO SCH (09:00)
[2023-07-26] MEDS ORDERED: Magnesium 2 GM/50 ML(in water) 2 GM in Premix 1 BAG IVPB SCH (09:15)
[2023-07-26] MEDS: Mesalamine DR 400 mg Capsule PO SCH (09:43)
[2023-07-26] MEDS: Saccharomyces boulardii 250 MG CAP PO SCH (09:45)
[2023-07-26] MEDS: Sertraline 25 MG TAB PO SCH (09:47)
[2023-07-26] MEDS: Baclofen 10 MG TAB PO PRN ×2 (09:56→21:44)
[2023-07-26] MEDS: hydrOXYzine 25 MG TAB PO PRN (21:44)
[2023-07-27] MEDS: Meropenem 1 GM in Sodium Chloride 0.9% 100 ML IVPB SCH (05:42)
[2023-07-27 06:39] LABS: #Eosinphils 0.2 thou/uL (0.0-0.7); #Monocytes 0.4 thou/uL (0.11-0.59); %Basophils 0.7 % (0.0-1.0); %Lymphocytes 48.5 % (21.0-51.0); %Neutrophils 32.5 % (42.0-75.0); Hematocrit 35.3 % (42.0-52.0); Hemoglobin 11.6 g/dL (14.0-18.0); Mean Corpuscular HGB CONC 32.9 g/dL (32.0-36.0); Mean Corpuscular Hemoglobin 29.1 pg (27.0-31.0); Mean Corpuscular Volume 88.7 fl (78.0-98.0); Mean Platelet Volume 9.7 fL (7.4-10.4); Platelet Count 264 10x3/uL (130-400); RBC Distribution Width 12.2 % (11.5-14.5); Red Blood Cell (RBC) Count 3.98 mill/uL (4.70-6.10)
[2023-07-27] MEDS ORDERED: Polyethylene Glycol 3350 17 GM Packet PO PRN (06:58)
[2023-07-27] MEDS ORDERED: Bisacodyl 5 MG TAB PO PRN (06:58)
[2023-07-27 07:07] LABS: ALT (SGPT) 15 U/L (8-55); AST (SGOT) 14 U/L (5-34); Albumin 3.2 g/dL (3.5-5.0); Alkaline Phosphatase 81 U/L (40-110); Anion Gap 13 mmol/L (10-20); BUN (Urea Nitrogen) 5 mg/dL (8.9-20.6); Bilirubin, Total 0.3 mg/dL (0.2-1.2); Calc. Creatinine Clearance 165 mL/min (70-130); Calcium 8.7 mg/dL (7.8-10.44); Carbon Dioxide 25 mmol/L (22-29); Chloride 104 mmol/L (98-107); Estimated GFR 149; Globulin 3.4 g/dL (2.4-3.5); Glucose 86 mg/dL (70-105); Potassium 3.7 mmol/L (3.5-5.1); Protein, Total 6.6 g/dL (6.0-8.3); Sodium 138 mmol/L (136-145)
[2023-07-27 07:20] VITALS: TEMP 98
[2023-07-27 07:29] LABS: Magnesium 1.9 mg/dL (1.6-2.6)
[2023-07-27 07:46] VITALS: BP 132/90
[2023-07-27] MEDS ORDERED: Potassium Chloride 20 MEQ TAB PO SCH (08:00)
[2023-07-27] MEDS ORDERED: Magnesium Oxide 400 MG TAB PO SCH ×2 (09:00)
[2023-07-27] MEDS: Baclofen 10 MG TAB PO PRN (09:19)
[2023-07-27] MEDS: Mesalamine DR 400 mg Capsule PO SCH (09:19)
[2023-07-27] MEDS: Saccharomyces boulardii 250 MG CAP PO SCH (09:19)
[2023-07-27] MEDS: Sertraline 25 MG TAB PO SCH (09:19)
== END 2023-07-27 12:50 | disposition home health service (06) | DRG 871 ==
LOC: ERS 00:49 → ERHOLD 04:40 → MSONC 09:16
PROVIDERS: ADMIT Student in an Organized Health Care Education/Training Program; ATTEND Student in an Organized Health Care Education/Training Program
PROC: 02HV33Z Insertion of Infusion Device into Superior Vena Cava, Percutaneous Approach (ICD-10-PCS; principal; 2023-07-24)
PROC: B5181ZA Fluoroscopy of Superior Vena Cava using Low Osmolar Contrast, Guidance (ICD-10-PCS; 2023-07-24)
PROC: B548ZZA Ultrasonography of Superior Vena Cava, Guidance (ICD-10-PCS; 2023-07-24)
PROC: 3E04329 Introduction of Other Anti-infective into Central Vein, Percutaneous Approach (ICD-10-PCS; 2023-07-24)
DX: A41.4 Sepsis due to anaerobes (principal); G82.50 Quadriplegia, unspecified; E44.0 Moderate protein-calorie malnutrition; N10 Acute pyelonephritis; N20.2 Calculus of kidney with calculus of ureter; Z68.1 Body mass index [BMI] 19.9 or less, adult; K51.90 Ulcerative colitis, unspecified, without complications; E87.6 Hypokalemia; K58.9 Irritable bowel syndrome, unspecified; I95.9 Hypotension, unspecified; K59.00 Constipation, unspecified; F41.9 Anxiety disorder, unspecified; E83.42 Hypomagnesemia; Z88.2 Allergy status to sulfonamides; Z88.1 Allergy status to other antibiotic agents; Z98.890 Other specified postprocedural states
CPT/HCPCS: 36415; 36569; 71045; 74177; 80053; 81001; 83605; 83690; 83735; 84439; 84443; 85025; 86140; 87040; 87077; 87086; 87186; 93005; 96361; 96365; 96375; C1751; J1644; J1650; J1885; J2185; J2543; J3475; J3490; J7120; Q9967

== ENCOUNTER 2025-05-02 06:30 | Day surgery (SDC) | payer BC, MEDICAID ==
[2025-05-01 14:23] VITALS: BMI 13.3
[2025-05-02] MEDS ORDERED: SUCCINYLCHOLINE/SOD CL,ISO/PF 200 MG/10 ML SYRINGE FS ONE (07:11)
[2025-05-02] MEDS ORDERED: PROPOFOL 40 ML ONE (07:11)
[2025-05-02] MEDS ORDERED: Lidocaine 1% PF 5 ML VIAL ONE (07:12)
[2025-05-02] MEDS ORDERED: Lidocaine 2% PF 100 mg/5 ml Syringe ONE (07:13)
== END 2025-05-02 09:41 | disposition home or self-care (01) ==
LOC: SDC 06:30
PROVIDERS: ATTEND Internal Medicine Gastroenterology
PROC: 0DB58ZX Excision of Esophagus, Via Natural or Artificial Opening Endoscopic, Diagnostic (ICD-10-PCS; principal; 2025-05-02)
PROC: 0DBL8ZX Excision of Transverse Colon, Via Natural or Artificial Opening Endoscopic, Diagnostic (ICD-10-PCS; principal; 2025-05-02)
PROC: 0DBP8ZX Excision of Rectum, Via Natural or Artificial Opening Endoscopic, Diagnostic (ICD-10-PCS; principal; 2025-05-02)
PROC: 0DBM8ZX Excision of Descending Colon, Via Natural or Artificial Opening Endoscopic, Diagnostic (ICD-10-PCS; principal; 2025-05-02)
PROC: 0DBK8ZX Excision of Ascending Colon, Via Natural or Artificial Opening Endoscopic, Diagnostic (ICD-10-PCS; principal; 2025-05-02)
PROC: 0DB68ZX Excision of Stomach, Via Natural or Artificial Opening Endoscopic, Diagnostic (ICD-10-PCS; principal; 2025-05-02)
PROC: 0DB98ZX Excision of Duodenum, Via Natural or Artificial Opening Endoscopic, Diagnostic (ICD-10-PCS; principal; 2025-05-02)
PROC: 0DBN8ZX Excision of Sigmoid Colon, Via Natural or Artificial Opening Endoscopic, Diagnostic (ICD-10-PCS; principal; 2025-05-02)
DX: K51.90 Ulcerative colitis, unspecified, without complications (principal); K22.10 Ulcer of esophagus without bleeding; K63.89 Other specified diseases of intestine; K29.70 Gastritis, unspecified, without bleeding; G82.50 Quadriplegia, unspecified; K59.2 Neurogenic bowel, not elsewhere classified; Z88.2 Allergy status to sulfonamides; Z88.1 Allergy status to other antibiotic agents; Z91.018 Allergy to other foods; Z79.899 Other long term (current) drug therapy
CPT/HCPCS: 88305; J2003; J2250; J2704